=== PATIENT | male | born 1975 | race Two or more races ===

== ENCOUNTER 2024-01-07 13:35 | Outpatient (AMB) | payer OTHER, SELFPAY ==
--- NOTE | 2024-01-07 13:59 | ORTHONT_ITS ---
Vital signs 01/07/24 14:00 Height 1.7 m Height Method Stated Weight 101.775 kg Weight Measurement Method Standing Scale BMI 35.2 BP 132/73 H Blood Pressure Source Automatic Cuff Blood Pressure Location Right Upper Arm Position Sitting Respiration 18 Pulse 60 Pulse Source Monitor Temp 97.7 F Temp Source Temporal Artery Scan Pulse Oximetry (%) 94 L Oxygen Delivery Method Room Air Med/Allergies Allergies & Medications Allergies pseudoephedrine Adverse Reaction (Severe, Verified 01/07/24 14:07) BLACKS OUT Medication Reconciliation nebivolol 5 mg tablet (Bystolic) 5 mg PO QDAY 04/06/22 [History Confirmed 01/07/24] omeprazole 40 mg capsule,delayed release 40 mg PO QDAY 04/06/22 [History Confirmed 01/07/24] meloxicam 15 mg tablet 15 mg PO DAILY PRN Pain 01/29/23 [History Confirmed ] cholecalciferol (vitamin D3) 125 mcg (5,000 unit) capsule 125 mcg PO QDAY 05/07/23 [History Confirmed 01/07/24] fenofibrate 160 mg tablet 160 mg PO QDAY 05/07/23 [History Confirmed 01/07/24] Subjective Visit Visit for: follow up visit and other (specify) (SHOULDER PAIN ) Immunization / Flu Flu Vaccine in the Last 12 Months: Yes Flu Vaccine Exclusion Criteria: Already Received History of Present Illness Chief complaint: SHOULDER PAIN Patient is a pleasant 48-year-old male who presents today for evaluation of his left shoulder. He reports that shoulder has been bothering him recently. 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 He reports the pain comes and goes but it bothers him quite a bit with overhead activity sometimes. He has not had any injections. He previously tried meloxicam but had to stop due to GI irritation Personal History Occupation: [employer] Pain level (0-10): 6 Pain duration: CONSTANT Pain location: other (specify) (LEFT SHOULDER) Pain quality: sharp, dull and aching Pain timing: night and increases with activity Associated signs & symptoms: weakness and stiffness Ambulatory data Ambulatory device: none Treatments Improvement with previous injections: No Improvement with PT: No Improvement with NSAIDS: n/a Review of Systems Review of Systems: All systems negative unless otherwise noted in HPI. Exam Exam Patient is in no acute distress and is cooperative with the examination today. Patient has a normal mood and affect. Breathing is nonlabored. In no respiratory distress. Bilateral extremities were evaluated and demonstrates sensation intact to light touch. Palpable Radial pulses are present. No significant edema is present. Patient has a positive Master's test. There is some pain with internal rotation but he actually has fairly good strength Assessment and Plan Problem List (1) Left shoulder pain: Status: Acute Plan: Patient is a 48-year-old male who is evaluated here today for his left shoulder pain. His significant left shoulder pain with overhead activities. He has a history of glenohumeral arthritis. His strength in his rotator cuff appears to be okay. I am worried about glenohumeral arthritis versus rotator cuff tear. I recommend an MRI for this. He has Tried meloxicam already but had to get irritation from this. I would like to order an MRI of his left shoulder. We will see him back after his MRI is done Office Procedures GNS Level of Care Nursing/Assessment Patient Status: Established Patient Nursing Assessment/Reassesment: Medication Reconciliation, Update PMH in EMR and Vital Signs Coordination of Care: Complex Care and Chronic Disease 1-5, Education Complex Pt/Fam, Consent,records obtained, informed consent, 1 Ins Authorization, Lab and Imaging orders, Results/Orders obtained and Staff clarify orders Special Needs: Language special needs Established Patient Charge Established Patient Point Assignment: 125 Established Patient Point Charge: EP Level 4 (120-155) Past Medical History Past Medical History Have you ever been diagnosed with any of the following: Neurological Problems Seizures: No Cardiology Problems Hypercholesterolemia: Yes (RESOLVED) Congestive Heart Failure: No Hypertension: Yes Respiratory Problems Chronic Obstructive Pulmonary Disease (COPD): No Genital/Urinary Problems Renal Disease: No Musculoskeletal Problems Arthritis: Yes Endocrine Problems Diabetes Mellitus Type 1: No Other Problems Blood Transfusions: No Anesthesia Reactions: No
[2024-01-07 14:00] VITALS: BP 132/73; PULSE 60; RESP 18; TEMP 36.5; O2SAT 94; BMI 35.2
== END 2024-01-07 14:13 | disposition home or self-care (01) ==
LOC: HODSRG 13:35
PROVIDERS: PCP Internal Medicine; Referring Provider Internal Medicine; Supervising Provider Orthopaedic Surgery Adult Reconstructive Orthopaedic Surgery; Visit Provider Orthopaedic Surgery Adult Reconstructive Orthopaedic Surgery
DX: M25.512 Pain in left shoulder (principal); I10 Essential (primary) hypertension
CPT/HCPCS: 99214; G0463

== ENCOUNTER → 2024-01-29 | Outpatient (CLI) | payer OTHER, SELFPAY ==
--- NOTE | 2024-01-29 07:30 | XR_ITS ---
MRI shoulder, left, without contrast. Date and time: January 29, 2024 0720 hours INDICATIONS: Left shoulder pain beginning one year ago Technique: Multiple axial, sagittal and coronal sections of the shoulder have been obtained. Siemens high-resolution 1.5 Ying MRI scanner is utilized. Axial fat-suppressed sections, TR 2350, TE 18 T2-weighted coronal fat-saturated images, TR 3500, TE 7100 T1-weighted coronal images, TR 500, TE 15 T2-weighted sagittal fat-saturated images, TR 3500, TE 57 T1-weighted sagittal sections, TR 504, TE 13. Findings: 20 mm partial-thickness articular surface tear rotator cuff Subscapularis insertion is intact. Subscapularis bursa is not seen. Long head of the biceps is in the bicipital groove. No definite tear of the biceps superior labral anchor is seen. Retraction of the musculotendinous junction of the rotator cuff is not seen . Tendinosis pattern is moderate. Distance between the acromium and humeral head is 4 mm Atrophy of the supraspinatus muscle is mild to moderate. Atrophy of the infraspinatus muscle is mild. Sagittal sections demonstrate a horizontal acromion. Acromioclavicular joint demonstrates mild osteoarthritis . Osacromiale is not identified. Posterior labral tear, fraying and irregularity anterior superior labral margins. Bony glenoid fossa on the sagittal sections does not demonstrate osseous defect. Occult fracture or area of avascular necrosis is not seen. Acromioclavicular joint separation is not visible. Defect in the posterolateral margin of the humeral head is not seen Impression: 20 mm partial-thickness articular surface tear rotator cuff, consider follow-up MR arthrography followed by post intra-articular contrast images of the shoulder to exclude full-thickness rotator cuff tear Posterior labral tear Fraying and irregularity anterior superior labral margins
== END | disposition home or self-care (01) ==
PROVIDERS: Referring Provider Orthopaedic Surgery Adult Reconstructive Orthopaedic Surgery; Visit Provider Orthopaedic Surgery Adult Reconstructive Orthopaedic Surgery
DX: S43.432A Superior glenoid labrum lesion of left shoulder, initial encounter (principal); X58.XXXA Exposure to other specified factors, initial encounter; M75.102 Unspecified rotator cuff tear or rupture of left shoulder, not specified as traumatic; M25.812 Other specified joint disorders, left shoulder
CPT/HCPCS: 73221

== ENCOUNTER 2024-01-31 07:55 | Outpatient (AMB) | payer OTHER, SELFPAY ==
[2024-01-31 08:02] VITALS: BP 144/89; PULSE 64; RESP 19; TEMP 36.5; O2SAT 98; BMI 34.5
--- NOTE | 2024-01-31 08:02 | PD.ORTHCLVIS ---
Vital signs 01/31/24 08:02 Height 1.7 m Height Method Stated Weight 99.847 kg Weight Measurement Method Standing Scale BMI 34.5 BP 144/89 H Blood Pressure Source Automatic Cuff Blood Pressure Location Right Upper Arm Position Sitting Respiration 19 Pulse 64 Pulse Source Monitor Temp 97.7 F Temp Source Temporal Artery Scan Pulse Oximetry (%) 98 Oxygen Delivery Method Room Air Med/Allergies Allergies & Medications Allergies pseudoephedrine Adverse Reaction (Severe, Verified 01/31/24 08:05) BLACKS OUT Medication Reconciliation nebivolol 5 mg tablet (Bystolic) 5 mg PO QDAY 04/06/22 [History Confirmed 01/31/24] omeprazole 40 mg capsule,delayed release 40 mg PO QDAY 04/06/22 [History Confirmed 01/31/24] meloxicam 15 mg tablet 15 mg PO DAILY PRN Pain 01/29/23 [History Confirmed 01/31/24] cholecalciferol (vitamin D3) 125 mcg (5,000 unit) capsule 125 mcg PO QDAY 05/07/23 [History Confirmed 01/31/24] fenofibrate 160 mg tablet 160 mg PO QDAY 05/07/23 [History Confirmed 01/31/24] naproxen 500 mg tablet 500 mg PO BID PRN pain #90 tabs 01/31/24 [Rx] Exam Exam Patient is in no acute distress and is cooperative with the examination today. Patient has a normal mood and affect. Breathing is nonlabored. In no respiratory distress. Bilateral extremities were evaluated and demonstrates sensation intact to light touch. Palpable Radial pulses are present. No significant edema is present. Patient has a positive Master's test. There is some pain with internal rotation but he actually has fairly good strength The MRI demonstrates a possible lesion of the left supraspinatus. It is partial and not complete Assessment and Plan Problem List (1) Supraspinatus tendon tear: Status: Acute Plan: The patient is a 48-year-old male with a Posta tear of the left supraspinatus. We discussed nonoperative treatment. It is not complete. We discussed that is thus reasonable to try conservative treatment including injections and physical therapy. Should this fail we will likely refer him to a shoulder and elbow specialist. I do think that he can likely rehab it. A 28 syringe was used and 1 cc of Kenalog and 4 cc of lidocaine were inserted Into the glenohumeral joint. The patient tolerated the procedure well Office Procedures GNS Level of Care Nursing/Assessment Patient Status: Established Patient Nursing Assessment/Reassesment: Medication Reconciliation, Update PMH in EMR and Vital Signs Coordination of Care: Complex Care and Chronic Disease 1-5, Education Complex Pt/Fam, Consent,records obtained, informed consent, 1 Ins Authorization, Results/Orders obtained and Staff clarify orders Established Patient Charge Established Patient Point Assignment: 110 Established Patient Point Charge: EP Level 3 (80-115) MA Intake Visit Data Collection New Patient or Established: Established Patient (seen at [facility] within 3 years) Reason for Visit:: RESULTS/INJECTION SHOULDER Seen by Clinical Staff ONLY (RN/MA): No Plush Dresser Required: No PCP or OBGYN visit in last 3 months: Yes Hx Now: No Do You Feel Safe at Home: Yes Authorities Contacted: N/A Questionairres Past Medical History Past Medical History Have you ever been diagnosed with any of the following: Neurological Problems Seizures: No Cardiology Problems Hypercholesterolemia: Yes (RESOLVED) Congestive Heart Failure: No Hypertension: Yes Respiratory Problems Chronic Obstructive Pulmonary Disease (COPD): No Genital/Urinary Problems Renal Disease: No Musculoskeletal Problems Arthritis: Yes Endocrine Problems Diabetes Mellitus Type 1: No Other Problems Blood Transfusions: No Anesthesia Reactions: No Subjective Visit Visit for: follow up visit and shoulder Immunization / Flu Flu Vaccine in the Last 12 Months: Yes Flu Vaccine Exclusion Criteria: Already Received History of Present Illness Chief complaint: Left shoulder pain For his a pleasant 48-year-old male with left shoulder pain. This has been ongoing for quite a while. We previously saw him and ordered an MRI. He has pain with overhead activity and when reaching for objects above his head. 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 We discussed the results of his MRI. His MRI demonstrates a positive lesion of the left supraspinatus Pain Pain level (0-10): 6 Pain duration: WITH MOVEMENT Pain location: other (specify) (SHOEDIL) Pain quality: aching Pain timing: night and increases with activity Associated signs & symptoms: none Ambulatory data Ambulatory device: none Treatments Improvement with previous injections: No Improvement with PT: No Improvement with NSAIDS: no Review of Systems Review of Systems: All systems negative unless otherwise noted in HPI.
== END 2024-01-31 08:34 | disposition home or self-care (01) ==
LOC: HODSRG 07:55
PROVIDERS: Supervising Provider Orthopaedic Surgery Adult Reconstructive Orthopaedic Surgery; Visit Provider Orthopaedic Surgery Adult Reconstructive Orthopaedic Surgery
DX: M75.102 Unspecified rotator cuff tear or rupture of left shoulder, not specified as traumatic (principal); I10 Essential (primary) hypertension
CPT/HCPCS: 20610; 99213; J3301; J3490; G0463

== ENCOUNTER 2024-03-10 10:48 | Outpatient (AMB) | payer OTHER, SELFPAY ==
--- NOTE | 2024-03-10 11:03 | PD.ORTHCLVIS ---
Vital signs 03/10/24 11:06 Height 1.7 m Height Method Stated Weight 101.378 kg Weight Measurement Method Standing Scale BMI 35.0 BP 145/85 H Blood Pressure Source Automatic Cuff Blood Pressure Location Left Upper Arm Position Sitting Respiration 19 Pulse 58 L Pulse Source Monitor Temp 98.0 F Temp Source Temporal Artery Scan Pulse Oximetry (%) 96 Oxygen Delivery Method Room Air Med/Allergies Allergies & Medications Allergies pseudoephedrine Adverse Reaction (Severe, Verified 03/10/24 11:08) BLACKS OUT Medication Reconciliation nebivolol 5 mg tablet (Bystolic) 5 mg PO QDAY 04/06/22 [History Confirmed 03/10/24] omeprazole 40 mg capsule,delayed release 40 mg PO QDAY 04/06/22 [History Confirmed 03/10/24] meloxicam 15 mg tablet 15 mg PO DAILY PRN Pain 01/29/23 [History Confirmed 03/10/24] cholecalciferol (vitamin D3) 125 mcg (5,000 unit) capsule 125 mcg PO QDAY 05/07/23 [History Confirmed 03/10/24] fenofibrate 160 mg tablet 160 mg PO QDAY 05/07/23 [History Confirmed 03/10/24] naproxen 500 mg tablet 500 mg PO BID PRN pain #90 tabs 01/31/24 [Rx Confirmed 03/10/24] Exam Exam Patient is in no acute distress and is cooperative with the examination today. Patient has a normal mood and affect. Breathing is nonlabored. In no respiratory distress. Bilateral extremities were evaluated and demonstrates sensation intact to light touch. Palpable Radial pulses are present. No significant edema is present. Patient has a positive Master's test. There is some pain with internal rotation but he actually has fairly good strength The MRI demonstrates a possible lesion of the left supraspinatus. It is partial and not complete Office Procedures GNS Level of Care Nursing/Assessment Patient Status: Established Patient Nursing Assessment/Reassesment: Medication Reconciliation, Update PMH in EMR and Vital Signs Coordination of Care: Complex Care and Chronic Disease 1-5, Education Complex Pt/Fam, Consent,records obtained, informed consent, 1 Ins Authorization, Results/Orders obtained and Staff clarify orders Special Needs: Language special needs Established Patient Charge Established Patient Point Assignment: 110 Established Patient Point Charge: EP Level 3 (80-115) MA Intake Visit Data Collection New Patient or Established: Established Patient (seen at [facility] within 3 years) Reason for Visit:: F/U PHYSICAL THERAPY Seen by Clinical Staff ONLY (RN/MA): No School Admissions Representative Required: Yes PCP or OBGYN visit in last 3 months: Yes Hx Now: No Do You Feel Safe at Home: Yes Authorities Contacted: N/A Questionairres Past Medical History Past Medical History Have you ever been diagnosed with any of the following: Neurological Problems Seizures: No Cardiology Problems Hypercholesterolemia: Yes (RESOLVED) Congestive Heart Failure: No Hypertension: Yes Respiratory Problems Chronic Obstructive Pulmonary Disease (COPD): No Genital/Urinary Problems Renal Disease: No Musculoskeletal Problems Arthritis: Yes Endocrine Problems Diabetes Mellitus Type 1: No Other Problems Blood Transfusions: No Anesthesia Reactions: No Subjective Visit Visit for: follow up visit and shoulder Immunization / Flu Flu Vaccine in the Last 12 Months: No Flu Vaccine Exclusion Criteria: No Exclusion Criteria History of Present Illness Chief complaint: Left shoulder pain For his a pleasant 48-year-old male with left shoulder pain. This has been ongoing for quite a while. We previously saw him and ordered an MRI. He has pain with overhead activity and when reaching for objects above his head. 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 We discussed the results of his MRI. His MRI demonstrates a positive lesion of the left supraspinatus. \ He has tried physical therapy and a cortisone injection. Still has persistent pain. We are thus sending him to a shoulder and elbow specialist Pain Pain level (0-10): 8 Pain duration: on and off Pain location: other (specify) (SHOUDLER) Pain quality: aching Pain timing: increases with activity Associated signs & symptoms: none Ambulatory data Ambulatory device: none Treatments Improvement with previous injections: No Improvement with PT: No Improvement with NSAIDS: no Review of Systems Review of Systems: All systems negative unless otherwise noted in HPI.
[2024-03-10 11:06] VITALS: BP 145/85; PULSE 58; RESP 19; TEMP 36.7; O2SAT 96; BMI 35.0
== END 2024-03-10 11:14 | disposition home or self-care (01) ==
LOC: HODSRG 10:48
PROVIDERS: Supervising Provider Orthopaedic Surgery Adult Reconstructive Orthopaedic Surgery; Visit Provider Orthopaedic Surgery Adult Reconstructive Orthopaedic Surgery
DX: M75.102 Unspecified rotator cuff tear or rupture of left shoulder, not specified as traumatic (principal); I10 Essential (primary) hypertension
CPT/HCPCS: 99213; G0463

== ENCOUNTER → 2024-05-06 | Outpatient (CLI) | payer OTHER, SELFPAY ==
[2024-05-06 09:52] LABS: Basophils % (Auto) 1 % (0-2.5); Eosinophils # (Auto) 0.2 Thou/mm3 (0.0-0.5); Eosinophils % (Auto) 4 % (0-10); Hematocrit 39.6 % (41.0-53.0); Immature Granulocytes % (Auto) 1 % (0-0); Immature Granulocytes Auto 0.03 Thou/mm3 (0.00-0.00); Lymphocytes # (Auto) 1.3 Thou/mm3 (1.0-4.8); Lymphocytes % (Auto) 22 % (10-50); Mean Corpuscular HGB Conc 32.8 g/dl (31.0-37.0); Mean Corpuscular Hemoglobin 26.8 pg (25.0-35.0); Mean Corpuscular Volume 82 fL (80-100); Monocytes # (Auto) 0.5 Thou/mm3 (0.0-0.8); Monocytes % (Auto) 9 % (0-12); Neutrophils # (Auto) 3.6 Thou/mm3 (1.8-7.7); Neutrophils % (Auto) 64 % (37-80); Nucleated Red Blood Cell % 0 /100 WBC (0); Platelet Count 216 Thou/mm3 (140-440); RDW Standard Deviation 41.3 fL (35.1-43.9); Red Blood Count 4.85 Miln/mm3 (4.50-5.90); White Blood Count 5.6 Thou/mm3 (3.8-10.6)
[2024-05-06 10:09] LABS: Glucose Estimated Average 194 mg/dL (80-131); Hemoglobin A1C 8.4 % Hgb (4.8-6.0)
[2024-05-06 10:49] LABS: Alanine Aminotransferase 41 U/L (10-49); Albumin, Serum 4.5 gm/dL (3.5-5.0); Albumin/Globulin Ratio 1.6 (1.2-2.2); Alkaline Phosphatase 101 U/L (46-116); Anion Gap 11 (7-16); Aspartate Amino Transferase 32 U/L (0-34); BUN/Creatinine Ratio 18 Ratio (12-20); Bilirubin,Total 0.5 mg/dL (0.3-1.2); Blood Urea Nitrogen 14 mg/dL (9-23); Calcium 9.8 mg/dL (8.3-10.6); Calcium (Corrected) 9.8 mg/dL (8.5-10.1); Carbon Dioxide 28.4 mMol/L (20.0-31.0); Cardiac Risk Estimate 5.5 RATIO (4.0-6.7); Chloride 101 mMol/L (98-107); Cholesterol 270 mg/dL (132-200); Creatinine (Component) 0.8 mg/dL (0.6-1.3); Free T4 (Free Thyroxine) 1.15 ng/dL (0.89-1.76); Globulin 2.8 gm/dL (2.3-3.5); Glucose 185 mg/dL (74-106); HDL Cholesterol 49 mg/dL (40-60); LDL Cholesterol,Calculated 157 mg/dL (0-130); Osmolality,Calculated 284 (275-295); Potassium 4.1 mMol/L (3.4-5.1); Sodium 140 mMol/L (136-145); Thyroid Stimulating Hormone 1.53 uIU/mL (0.55-4.78); Total Protein 7.3 gm/dL (5.7-8.2); Triglycerides 321 mg/dL (30-150); eGFR > 60 See Note
[2024-05-06 12:13] LABS: Vitamin D 25 Hydroxy Total 26.9 ng/mL (7.3-40.2)
== END | disposition home or self-care (01) ==
LOC: COPL 08:10
PROVIDERS: PCP Internal Medicine; Referring Provider Internal Medicine; Visit Provider Internal Medicine
DX: Z00.00 Encounter for general adult medical examination without abnormal findings (principal); E55.9 Vitamin D deficiency, unspecified
CPT/HCPCS: 36415; 80053; 80061; 82306; 83036; 84439; 84443; 85025

== ENCOUNTER → 2024-08-06 | Outpatient (CLI) | payer OTHER, SELFPAY ==
[2024-08-06 12:29] LABS: Glucose Estimated Average 157 mg/dL (80-131); Hemoglobin A1C 7.1 % Hgb (4.8-6.0)
[2024-08-06 12:31] LABS: Cardiac Risk Estimate 2.8 RATIO (4.0-6.7); Cholesterol 140 mg/dL (132-200); Glucose,Fasting 109 mg/dL (74-106); HDL Cholesterol 50 mg/dL (40-60); LDL Cholesterol,Calculated 70 mg/dL (0-130); Triglycerides 101 mg/dL (30-150)
== END | disposition home or self-care (01) ==
LOC: COPL 10:51
PROVIDERS: PCP Internal Medicine; Referring Provider Internal Medicine; Visit Provider Internal Medicine Cardiovascular Disease
DX: E11.9 Type 2 diabetes mellitus without complications (principal); E78.2 Mixed hyperlipidemia
CPT/HCPCS: 36415; 80061; 82947; 83036